=== PATIENT | male | born 1960 | race Hispanic/Latino ===

== ENCOUNTER 2018-07-01 15:22 | Outpatient (CLI) | payer OTHER | END 2018-07-01 15:23 | disposition home or self-care (01) | LOC: DTY/OP 15:22 | PROVIDERS: ATTEND Family Medicine | DX: E11.59 Type 2 diabetes mellitus with other circulatory complications (principal) | CPT/HCPCS: 97802 ==

== ENCOUNTER 2019-02-21 14:40 | Outpatient (CLI) | payer OTHER ==
--- NOTE | 2019-02-21 15:02 | RAD ---
Chest 2 views HISTORY: Kidney cancer. Follow-up. COMPARISON: 09/10/2017. FINDINGS: Cardiac silhouette and pulmonary vasculature are unremarkable. Mediastinum is midline. No c onfluent airspace consolidation, pneumothorax, or pleural fluid. Degenerative changes of the thoracic spine and shoulders. IMPRESSION: No active cardiopulmonary abnormalities are demonstrated.
--- NOTE | 2019-02-21 15:53 | ULT ---
Renal sonogram HISTORY: Kidney cancer. Follow-up. COMPARISON: CT exam from 09/16/2017. FINDINGS: Right kidney is 11.6 cm. Postsurgical changes are stable. No focal mass. No hydronephrosis. Urinary bladder is unremarkable. Left kidney is 11.7 cm long and has a normal appearance without evidence of mass, stone, or hydroneph rosis. IMPRESSION: No significant abnormalities are demonstrated.
== END 2019-02-21 14:41 | disposition home or self-care (01) ==
LOC: BICULT 14:40
PROVIDERS: ATTEND Urology
DX: C64.1 Malignant neoplasm of right kidney, except renal pelvis (principal)
CPT/HCPCS: 71046; 76770

== ENCOUNTER 2019-11-25 09:17 | Outpatient (CLI) | payer BC ==
--- NOTE | 2019-11-25 09:54 | RAD ---
XR Chest 1 View Portable HISTORY: Clear cell carcinoma of the right kidney COMPARISON: 02/21/2019 FINDINGS: The heart size is normal. The lungs are well expanded without focal areas of consolidation, pneumothorax or pleural effusions. There is an electronic device overlying the left chest. IMPRESSION: No radiographic evidence of acute cardiopulmonary process.
[2019-11-25] MEDS ORDERED: Iopamidol 370 76% 100 ML VIAL ONE (10:21)
--- NOTE | 2019-11-25 10:48 | CT ---
CT ABDOMEN AND PELVIS WITH AND WITHOUT IV CONTRAST 11/25/2019 CLINICAL INFORMATION: Clear cell carcinoma of right kidney. Follow-up evaluation. Excision of tumor in 2015. COMPARISON: CT abdomen on 09/16/2017 Technique: Multiple contiguous axial CT images are obtained through the abdomen and pelvis with IV contrast. Cor onal reformatted images are provided. FINDINGS: Lower Chest: Minimal dependent atelectasis is present each lung base. No pulmonary nodule or pleural effusion is seen either lung base. Vessels: Abdominal aorta is normal in caliber. Abdomen: Portal vein:Patent Gallbladder: A small increased density focus is seen in the gallbladder lumen also seen on the prior study and in a similar location. This could represent either a gallbladder polyp or gallbladder calculus measuring approximately 4 mm. Liver: within normal limits. Spleen: within normal limits. Pancreas: within normal limits. Adrenals: within normal limits. Kidneys: Postsurgical changes right kidney related to partial right nephrectomy are again noted. Find ings are overall similar to the prior exam. No abnormal areas of enhancement are seen in this region, and no cystic lesion is appreciated. The left kidney demonstrates a normal CT appearance. Bowel: Small to moderate amount retained fecal material seen throughout the colon. Loops of small bow el are normal in caliber. Appendix: The appendix is visualized and normal in caliber. Peritoneum: No ascites or free air; no fluid collection. Mesentery and Retroperitoneum: No enlarged mesenteric or retroperitoneal lymph nodes. Abdominal Wall: within normal limits. Pelvis: Reproductive Organs: Prostate gland is enlarged measuring 5.6 cm in transverse dimensions with mild n onspecific heterogeneity involving the prostate gland. Pelvis within normal limits. Bladder: Mostly decompressed. Hammond of the urinary bladder appear mildly thickened, but this is proba douglas attributable to incomplete distention Bones: Degenerative and postoperative changes in the lumbar spine are noted. No suspicious lytic or s clerotic osseous lesions are identified. IMPRESSION: 1. Postoperative changes related to partial right nephrectomy are again seen. No abnormal enhancing l esion is seen in the region of postoperative changes or involving the right kidney. 2. No CT evidence of metastatic disease. 3. Stable small 4 mm gallbladder polyp versus calculus in the region of the neck of the gallbladder. 4. Enlarged heterogeneous prostate gland.
== END 2019-11-25 09:18 | disposition home or self-care (01) ==
LOC: CT 09:17
PROVIDERS: ATTEND Urology
DX: C64.1 Malignant neoplasm of right kidney, except renal pelvis (principal); N40.0 Benign prostatic hyperplasia without lower urinary tract symptoms
CPT/HCPCS: 71045; 74178; Q9967

== ENCOUNTER 2020-01-02 09:12 | Outpatient (CLI) | payer BC ==
--- NOTE | 2020-01-02 11:22 | MRI ---
MR OF THE THORACIC SPINE WITHOUT CONTRAST INDICATION: 59-year-old male with radicular back pain TECHNIQUE: Multiplanar multisequence MR images were obtained of the thoracic spine without contrast. Spine count series was provided. COMPARISON: None FINDINGS: Bone marrow signal intensity: Normal Spinal alignment: Normal Spinal cord: Normal signal intensity and contour. Paravertebral soft tissues: Normal Vertebral levels: T1-T2: No appreciable central canal or neural foraminal narrowing is evident. T2-T3: No appreciable central canal or neural foraminal narrowing. T3-T4: No appreciable central canal or neural foraminal narrowing.. T4-T5: No appreciable central canal or neural foraminal narrowing. T5-T6: There is a moderate size central to right paracentral disc protrusion inducing mild ventral ef facement of the spinal cord without definite cord signal abnormality. T6-T7: There is a right central cephalad extending disc extrusion, extending superiorly up to T5-T6 i ntervertebral level, measuring 1.8 cm x 0.6 cm in its greatest craniocaudad and mediolateral dimensions. This is causing mild ventral effacement of the subarachnoid space with ventral cord conta ct. T7-T8: There is a central cephalad extending disc extrusion causing mild ventral effacement of the tarango barachnoid space and spinal cord. This extrusion measures 1.3 x 0.5 cm, craniocaudad versus mediolateral dimensions respectively. T8-T9: There is a left paracentral disc extrusion causing mild ventral effacement of the subarachnoid space. T9-T10: No appreciable central canal or neural foraminal narrowing. T10-T11: No appreciable central canal or neural foraminal narrowing. T11-T12: No appreciable central canal or neural foraminal narrowing. T12-L1: No appreciable central canal or neural foraminal narrowing. Additional findings: None. IMPRESSION: 1. Disc protrusions and disc extrusions at T5-6 through T8-T9 inducing central canal narrowing as abo ve
--- NOTE | 2020-01-02 11:40 | MRI ---
MR the lumbar spine without contrast INDICATION: Lumbar radicular pain with history of back surgery COMPARISON: MR lumbar spine without contrast from prior radiology associates dated May 31, 2015 TECHNIQUE: Multiplanar multisequence MR images were obtained of lumbar spine without IV contrast. FINDINGS: Bone marrow: Normal. Distal spinal cord and conus: Normal. Conus is seen to terminate at the L1 level. Visualized retroperitoneum and paraspinal soft tissues: Normal. No lymphadenopathy demonstrated. There is postprocedural change of a posterior lateral interbody fusion at L4-5 which is new from the prior exam. Vertebral levels: L5-S1: Susceptibility artifact limits evaluation of the left L5-S1 neural foramina. There is stable g rade 1 anterolisthesis of L5 on S1. There is loss of disc space height in addition to facet hypertrophy inducing at least mild right neural foraminal narrowing. L4-5: There is postprocedural change of a laminectomy at L4-5. There is some loss of disc space heigh t in addition to some residual facet hypertrophy that induces at least moderate left and mild right neural foraminal narrowing. The neural foraminal narrowing is slightly improved from the prior exam. Previously seen central canal narrowing has improved. L3-4: There is a new cephalad extending disc extrusion seen centrally at L3-4 measuring 1.6 x 1.7 cm in its greatest mediolateral and craniocaudad dimensions respectively. The extrusion in addition to facet hypertrophy and ligamentum flavum hypertrophy induces severe central canal narrowing which is n ew from the prior exam. The facet hypertrophy in addition to a broad-based bulge at L3-4 induces moderate bilateral neural foraminal narrowing which has progressed from the prior exam. L2-3: There is a broad-based disc bulge with a superimposed left paracentral disc protrusion. The bro ad-based bulge with facet hypertrophy induces mild bilateral neural foraminal narrowing and mild central canal narrowing. This has progressed from the prior exam. L1-L2: No appreciable central canal or neuroforaminal narrowing. T12-L1: No appreciable central canal or neuroforaminal narrowing. IMPRESSION: 1. New cephalad extending disc extrusion seen centrally at L3-4 inducing severe central canal narrowi ng. There is also worsening moderate bilateral neural foraminal narrowing at L3-4 due to a a broad-based bulge and facet hypertrophy. 2. Improvement in the previously seen central canal narrowing at L4-5 due to laminectomies at L4. The re is slight improving moderate left and mild right neural foraminal narrowing at L4-5. 3. Some limitations examination due to susceptibility artifact from pedicle screws at L5. The left ne ural foraminal narrowing at L5-S1 is not well seen. There is at least mild right neural foraminal narrowing at L5-S1. 4. Broad-based bulge with a small superimposed left paracentral disc protrusion at L2-3 inducing mild central canal narrowing and mild bilateral neural foraminal narrowing.
== END 2020-01-02 09:13 | disposition home or self-care (01) ==
LOC: TBSIIMAG 09:12
PROVIDERS: ATTEND Family Medicine
DX: M51.14 Intervertebral disc disorders with radiculopathy, thoracic region (principal); M47.26 Other spondylosis with radiculopathy, lumbar region; M96.1 Postlaminectomy syndrome, not elsewhere classified; M48.062 Spinal stenosis, lumbar region with neurogenic claudication; Z98.1 Arthrodesis status; M51.16 Intervertebral disc disorders with radiculopathy, lumbar region
CPT/HCPCS: 72146; 72148

== ENCOUNTER 2020-08-17 10:35 | Outpatient (CLI) | payer BC ==
--- NOTE | 2020-08-17 13:09 | RAD ---
RIGHT KNEE 4 VIEWS: Date: 08/17/2200 HISTORY: Right knee pain. No specific injury. FINDINGS: There are moderate arthritic changes noted. There is some mild to moderate medial compartment narrowi ng, fairly prominent patellofemoral spurs, and also lateral compartment degenerative change. There is a small joint effusion seen. IMPRESSION: 1. Moderate osteoarthritic changes of the knee. 2. Atherosclerosis. POS: MACK
--- NOTE | 2020-08-17 13:10 | RAD ---
RIGHT CLAVICLE 2 VIEWS: Date: 08/17/2020 HISTORY: Deformity right clavicle, no injury. FINDINGS: There is some moderate arthrosis of the AC joint. There is no old or new fracture of the clavicle. Po stoperative changes related to previous rotator cuff repair are noted. IMPRESSION: Some moderate arthrosis of the AC joint. This may account for the deformity if the deformity is in th e region of the distal clavicle. POS: MACK
--- NOTE | 2020-08-17 13:13 | RAD ---
LEFT SHOULDER 3 VIEWS: Date: 08/17/2020 HISTORY: Left shoulder pain. FINDINGS: Some mild to moderate arthritic change of the AC joint. Glenohumeral joint space appears fairly unrem arkable. There are no signs of fracture. IMPRESSION: Mild arthritic changes of the shoulder. POS: MACK
== END 2020-08-17 10:36 | disposition home or self-care (01) ==
LOC: BICRAD 10:35
PROVIDERS: ATTEND Physician Assistant
DX: M25.512 Pain in left shoulder (principal); M25.561 Pain in right knee; M95.8 Other specified acquired deformities of musculoskeletal system; M19.012 Primary osteoarthritis, left shoulder; M19.011 Primary osteoarthritis, right shoulder; M17.12 Unilateral primary osteoarthritis, left knee; I70.90 Unspecified atherosclerosis

== ENCOUNTER 2020-08-20 09:11 | Outpatient (CLI) | payer BC ==
--- NOTE | 2020-08-20 10:13 | ULT ---
GALLBLADDER ULTRASOUND: HISTORY: Right upper quadrant abdominal pain, nausea FINDINGS: The liver demonstrates homogeneous echotexture without focal mass or intrahepatic biliary ductal dila tation. No gallstones, gallbladder wall thickening or pericholecystic fluid are seen. There is a nonshadowing 5 mm echogenic focus arising from the wall of the gallbladder without mobility, consistent with polyp The pancreas is not visualized due to overlying bowel gas. There is a 4 x 2.4 x 2.3 cm hypoechoic area in the right kidney. It cannot be said with certainty if this is due to a mass or postop change. The common duct [id number] in diameter. No free fluid is seen in the Daniels's pouch. IMPRESSION: 1. A 5 mm gallbladder polyp 2. Mass versus postop change in the right kidney. CT scan of the abdomen and pelvis using the urograp hy protocol is recommended.
== END 2020-08-20 09:12 | disposition home or self-care (01) ==
LOC: BICULT 09:11
PROVIDERS: ATTEND Surgery
DX: R10.11 Right upper quadrant pain (principal); R11.0 Nausea; K82.4 Cholesterolosis of gallbladder
CPT/HCPCS: 76705

== ENCOUNTER 2020-09-07 08:31 | Outpatient (CLI) | payer BC ==
--- NOTE | 2020-09-07 12:12 | CT ---
CT ABDOMEN WITH AND WITHOUT IV CONTRAST: HISTORY: Clear cell carcinoma of the right kidney. COMPARISON: 09/16/2017. FINDINGS: Postop changes of partial right nephrectomy are again seen. No renal calculi or renal mass is seen o n either side. There is normal contrast excretion into the ureters bilaterally. No calculi are seen in the visualized portions of the ureters. No hydroureteral nephrosis is seen on either side. The lung bases are clear. The liver, spleen, pancreas, and adrenal glands are normal. A tiny calcif ied gallstone is present. No free air, free fluid, or lymphadenopathy is noted in the abdomen. The aorta is of normal caliber. There are postop changes of posterior small effusion at L4-5 level. Degenerative changes are prese nt in the spine. No osteolytic or osteoblastic lesions are noted. The small bowel loops are not abn ormally dilated. A normal-appearing appendix is present. IMPRESSION: 1. Stable postop changes of partial right nephrectomy without evidence of recurrent or metastatic di sease. 2. Cholelithiasis. POS: AH
[2020-09-07] MEDS ORDERED: Iopamidol 370 76% 100 ML VIAL ONE (15:05)
== END 2020-09-07 08:32 | disposition home or self-care (01) ==
LOC: CT 08:31
PROVIDERS: ATTEND Urology
DX: C64.1 Malignant neoplasm of right kidney, except renal pelvis (principal); K80.20 Calculus of gallbladder without cholecystitis without obstruction; Z90.5 Acquired absence of kidney
CPT/HCPCS: 74170; Q9967

== ENCOUNTER 2021-06-11 12:00 | Inpatient (IN) | payer BC ==
[2021-06-13 11:27] VITALS: BMI 41.1
[2021-06-14] MEDS ORDERED: Albumin 5% 500 ML ONE (06:28)
[2021-06-14] MEDS ORDERED: Fentanyl 100 MCG/2 ML VIAL ONE (06:47)
[2021-06-14] MEDS ORDERED: Dexmedetomidine 200 MCG/2 ML VIAL ONE (06:48)
[2021-06-14] MEDS ORDERED: Midazolam HCl 5 mg/5 ml Vial ONE (06:48)
[2021-06-14] MEDS ORDERED: Heparin 10,000 UNITS/1 ML VIAL 30,000 UNITS in Sodium Chloride 0.9% 1,000 ML FS SCH (07:00)
[2021-06-14] MEDS ORDERED: Midazolam HCl 2 mg/2 ml Vial ONE (07:10)
[2021-06-14] MEDS ORDERED: Ondansetron ODT 4 MG TAB ONE (07:11)
[2021-06-14] MEDS ORDERED: PROPOFOL 200 MG/20 ML VIAL ONE (08:06)
[2021-06-14] MEDS ORDERED: Thrombin 5000 UNITS/5 ML VIAL ONE (08:06)
[2021-06-14] MEDS ORDERED: Dexamethasone 20 MG/5 ML VIAL ONE (08:06)
[2021-06-14] MEDS ORDERED: Aminocaproic Acid 5 GM/20 ML VIAL ONE (08:06)
[2021-06-14] MEDS ORDERED: Ketorolac Tromethamine 30 MG/ML VIAL ONE (08:06)
[2021-06-14] MEDS ORDERED: Vecuronium 10 MG VIAL ONE (08:06)
[2021-06-14] MEDS ORDERED: Protamine Sulfate 250 MG/25 ML VIAL ONE (08:06)
[2021-06-14] MEDS ORDERED: Norepinephrine 4 MG/4 ML VIAL ONE (08:06)
[2021-06-14] MEDS ORDERED: Calcium Chloride 1 GM/10 ML Abboject SYRINGE ONE (08:06)
[2021-06-14] MEDS ORDERED: Glycopyrrolate 0.2 MG/ML 5 ML SYRINGE ONE (08:06)
[2021-06-14] MEDS ORDERED: Lidocaine 1% PF 5 ML VIAL ONE (08:06)
[2021-06-14] MEDS ORDERED: Ondansetron PF 4 MG/2 ML Vial ONE (08:06)
[2021-06-14] MEDS ORDERED: Heparin 30,000 units/30 ml VIAL ONE (08:06)
[2021-06-14] MEDS ORDERED: Nitroglycerin 50 MG/250 ML BOT ONE (08:06)
[2021-06-14] MEDS ORDERED: Insulin Regular 300 UNITS/3 ML VIAL ONE (08:11)
[2021-06-14] MEDS ORDERED: Furosemide 20 MG/2 ML VIAL ONE (09:40)
[2021-06-14] MEDS ORDERED: Acetaminophen 325 MG TAB PO PRN (10:37)
[2021-06-14] MEDS ORDERED: HYDROcodone/Acetaminophen 5/325 mg Tablet PO PRN (10:37)
[2021-06-14] MEDS ORDERED: Morphine 2 MG/ML VIAL SLOW IVP PRN (10:37)
[2021-06-14] MEDS ORDERED: Fentanyl 100 MCG/2 ML VIAL SLOW IVP PRN ×2 (10:37)
[2021-06-14] MEDS ORDERED: Post-Op Insulin Drip Protocol IVPB ONE (10:37)
[2021-06-14] MEDS ORDERED: Promethazine HCl 25 MG/ML VIAL IM PRN (10:37)
[2021-06-14] MEDS ORDERED: Hetastarch 6% 500 ML 500 ML IVPB PRN (10:37)
[2021-06-14] MEDS ORDERED: niCARdipine 25 MG in Sodium Chloride 0.9% 250 ML 250 ML IVPB PRN (10:37)
[2021-06-14] MEDS ORDERED: DOPamine 400 MG/D5W 250 ML 250 ML IVPB PRN (10:37)
[2021-06-14] MEDS ORDERED: Guaifenesin DM 100-10/5 ML UDCUP PO PRN (10:37)
[2021-06-14] MEDS ORDERED: Nitroglycerin 50 MG/250 ML BOT 250 ML IVPB PRN (10:37)
[2021-06-14] MEDS ORDERED: Bisacodyl 10 MG SUPP PR PRN (10:37)
[2021-06-14] MEDS ORDERED: hydrALAZINE 20 MG/ML VIAL SLOW IVP PRN (10:37)
[2021-06-14] MEDS ORDERED: Potassium Chloride 20 MEQ/100 ML PREMIX BAG IVPB PRN (10:37)
[2021-06-14] MEDS ORDERED: Ondansetron PF 4 MG/2 ML Vial IVP PRN (10:37)
[2021-06-14] MEDS ORDERED: Mag-Al 1200 mg/1200 mg/30 ML UDCUP PO PRN (10:37)
[2021-06-14 11:14] LABS: #Eosinphils 0.1 thou/uL (0.0-0.7); #Lymphocytes 1.7 thou/uL (1.20-3.40); #Monocytes 0.4 thou/uL (0.11-0.59); #Neutrophils 11.9 thou/uL (1.40-6.50); %Basophils 0.2 % (0.0-1.0); %Eosinophils 0.7 % (0.0-10.0); %Monocytes 2.8 % (0.0-10.0); %Neutrophils 84.2 % (42.0-75.0); Hemoglobin 14.6 g/dL (14.0-18.0); Mean Corpuscular HGB CONC 35.3 g/dL (32.0-36.0); Mean Corpuscular Hemoglobin 33.3 pg (27.0-31.0); Mean Corpuscular Volume 94.4 fL (78.0-98.0); Mean Platelet Volume 8.3 fL (7.4-10.4); Platelet Count 188 thou/uL (130-400); RBC Distribution Width 11.9 % (11.5-14.5); Red Blood Cell (RBC) Count 4.37 mill/uL (4.70-6.10); White Blood Cell (WBC) Count 14.1 thou/uL (4.8-10.8)
[2021-06-14 11:26] LABS: PTT 33.3 sec (22.9-36.1); Prothrombin Time 13.1 sec (12.0-14.7)
[2021-06-14] MEDS ORDERED: Dextrose 5% in Water 1,000 ML IV PRN (11:30)
[2021-06-14] MEDS ORDERED: Insulin Regular 300 UNITS/3 ML VIAL SC PRN (11:30)
[2021-06-14] MEDS ORDERED: Dextrose 50% Abboject 50 ML SYRINGE SLOW IVP PRN (11:30)
[2021-06-14] MEDS ORDERED: HUMULIN R 100 UNITS in Sodium Chloride 0.9% 100 ML IVPB SCH (11:30)
[2021-06-14] MEDS: Lactated Ringer's 1,000 ML IV SCH (11:37)
[2021-06-14 11:43] LABS: Anion Gap 11 mmol/L (10-20); BUN (Urea Nitrogen) 19 mg/dL (8.4-25.7); Calc. Creatinine Clearance 146 mL/min (70-130); Calcium 8.4 mg/dL (7.8-10.44); Carbon Dioxide 21 mmol/L (22-29); Chloride 104 mmol/L (98-107); Glucose 179 mg/dL (70-105); Sodium 131 mmol/L (136-145)
[2021-06-14] MEDS: Ketorolac Tromethamine 30 MG/ML VIAL IVP SCH ×2 (11:48→17:08)
[2021-06-14] MEDS: HYDROcodone/Acetaminophen 5/325 mg Tablet PO PRN ×3 (13:22→22:03)
[2021-06-14] MEDS: CEFAZOLIN 2 GM in Premix Bag 1 BAG IVPB SCH ×2 (14:14→22:04)
[2021-06-14 16:33] LABS: Hemoglobin 14.2 g/dL (14.0-18.0)
[2021-06-14] MEDS ORDERED: Famotidine/PF 20 mg/2ml Vial SLOW IVP SCH (21:00)
[2021-06-14] MEDS: Atorvastatin Calcium 20 MG TAB PO SCH (21:01)
[2021-06-15] MEDS: Ketorolac Tromethamine 30 MG/ML VIAL IVP SCH ×5 (00:01→23:17)
[2021-06-15] MEDS: HYDROcodone/Acetaminophen 5/325 mg Tablet PO PRN ×4 (02:05→21:37)
[2021-06-15 04:22] LABS: #Basophils 0.1 thou/uL (0.0-0.2); #Lymphocytes 1.5 thou/uL (1.20-3.40); #Monocytes 1.3 thou/uL (0.11-0.59); #Neutrophils 13.1 thou/uL (1.40-6.50); %Basophils 0.3 % (0.0-1.0); %Eosinophils 0.1 % (0.0-10.0); %Lymphocytes 9.3 % (21.0-51.0); %Monocytes 8.2 % (0.0-10.0); Hemoglobin 14.4 g/dL (14.0-18.0); Mean Corpuscular HGB CONC 34.6 g/dL (32.0-36.0); Mean Corpuscular Hemoglobin 32.5 pg (27.0-31.0); Mean Corpuscular Volume 94.1 fL (78.0-98.0); Mean Platelet Volume 8.6 fL (7.4-10.4); Platelet Count 193 thou/uL (130-400); RBC Distribution Width 11.8 % (11.5-14.5); Red Blood Cell (RBC) Count 4.43 mill/uL (4.70-6.10)
[2021-06-15 04:42] LABS: Anion Gap 10 mmol/L (10-20); BUN (Urea Nitrogen) 24 mg/dL (8.4-25.7); Calc. Creatinine Clearance 125 mL/min (70-130); Calcium 8.7 mg/dL (7.8-10.44); Carbon Dioxide 25 mmol/L (22-29); Chloride 102 mmol/L (98-107); Glucose 146 mg/dL (70-105); Potassium 4.3 mmol/L (3.5-5.1); Sodium 133 mmol/L (136-145)
[2021-06-15] MEDS: CEFAZOLIN 2 GM in Premix Bag 1 BAG IVPB SCH (06:04)
[2021-06-15] MEDS: Lactated Ringer's 1,000 ML IV SCH (06:37)
[2021-06-15] MEDS: Furosemide 40 MG TAB PO SCH (07:25)
[2021-06-15] MEDS ORDERED: Guaifenesin DM 100-10/5 ML UDCUP PO PRN (07:55)
[2021-06-15] MEDS ORDERED: Nitroglycerin 0.4 MG TAB (25 Tab Bottle) SL PRN (07:55)
[2021-06-15] MEDS ORDERED: Mineral Oil ENEMA PR PRN (07:55)
[2021-06-15] MEDS: Lantus 1000 UNITS/10 ML VIAL SC SCH ×2 (08:03→23:16)
[2021-06-15] MEDS: Polyethylene Glycol 3350 17 GM Packet PO SCH (08:05)
[2021-06-15] MEDS ORDERED: Dextrose 50% Abboject 50 ML SYRINGE SLOW IVP PRN (08:15)
[2021-06-15] MEDS ORDERED: Dextrose 5% in Water 1,000 ML IV PRN (08:15)
[2021-06-15] MEDS: Potassium Chloride 10 MEQ TAB PO SCH (08:50)
[2021-06-15] MEDS: Famotidine 20 MG TAB PO SCH ×2 (08:51→21:37)
[2021-06-15] MEDS: Aspirin 325 MG TAB PO SCH (08:51)
[2021-06-15] MEDS ORDERED: Aspirin 325 mg Enteric Coated Tablet PO SCH (09:00)
[2021-06-15] MEDS: Insulin Regular 300 UNITS/3 ML VIAL SC PRN ×2 (11:10→16:04)
[2021-06-15] MEDS ORDERED: Atorvastatin Calcium 20 MG TAB PO SCH (21:00)
[2021-06-15] MEDS: Atorvastatin Calcium 20 MG TAB PO SCH (22:48)
[2021-06-16 04:10] LABS: #Eosinphils 0.1 thou/uL (0.0-0.7); #Lymphocytes 2.2 thou/uL (1.20-3.40); #Monocytes 0.9 thou/uL (0.11-0.59); #Neutrophils 5.8 thou/uL (1.40-6.50); %Basophils 0.4 % (0.0-1.0); %Eosinophils 0.9 % (0.0-10.0); %Lymphocytes 24.5 % (21.0-51.0); %Monocytes 10.4 % (0.0-10.0); %Neutrophils 63.9 % (42.0-75.0); Mean Corpuscular HGB CONC 34.8 g/dL (32.0-36.0); Mean Corpuscular Hemoglobin 33.2 pg (27.0-31.0); Mean Corpuscular Volume 95.3 fL (78.0-98.0); Mean Platelet Volume 8.3 fL (7.4-10.4); Platelet Count 146 thou/uL (130-400); RBC Distribution Width 11.8 % (11.5-14.5); Red Blood Cell (RBC) Count 3.93 mill/uL (4.70-6.10)
[2021-06-16 04:27] LABS: Anion Gap 8 mmol/L (10-20); BUN (Urea Nitrogen) 26 mg/dL (8.4-25.7); Calc. Creatinine Clearance 119 mL/min (70-130); Calcium 8.3 mg/dL (7.8-10.44); Carbon Dioxide 28 mmol/L (22-29); Chloride 100 mmol/L (98-107); Glucose 164 mg/dL (70-105); Potassium 4.3 mmol/L (3.5-5.1); Sodium 132 mmol/L (136-145)
[2021-06-16] MEDS: Ketorolac Tromethamine 30 MG/ML VIAL IVP SCH ×4 (05:02→23:56)
[2021-06-16] MEDS: Insulin Regular 300 UNITS/3 ML VIAL SC PRN ×4 (06:30→20:47)
[2021-06-16] MEDS: Aspirin 325 MG TAB PO SCH (08:12)
[2021-06-16] MEDS: Potassium Chloride 10 MEQ TAB PO SCH (08:12)
[2021-06-16] MEDS: Polyethylene Glycol 3350 17 GM Packet PO SCH (08:12)
[2021-06-16] MEDS: Furosemide 40 MG TAB PO SCH (08:13)
[2021-06-16] MEDS: Famotidine 20 MG TAB PO SCH ×2 (08:13→20:45)
[2021-06-16] MEDS: Lantus 1000 UNITS/10 ML VIAL SC SCH ×2 (08:14→20:47)
[2021-06-16] MEDS: Bisacodyl 5 MG TAB PO PRN ×2 (11:21→20:45)
[2021-06-16] MEDS ORDERED: Lisinopril 10 MG TAB PO SCH (21:00)
[2021-06-16] MEDS ORDERED: Lisinopril 5 MG TAB PO SCH (21:00)
[2021-06-16] MEDS ORDERED: Cepastat Lozenges 1 LOZ PO PRN (21:05)
[2021-06-16] MEDS: Atorvastatin Calcium 20 MG TAB PO SCH (23:46)
[2021-06-17] MEDS: Ketorolac Tromethamine 30 MG/ML VIAL IVP SCH (05:30)
[2021-06-17] MEDS: Insulin Regular 300 UNITS/3 ML VIAL SC PRN (05:46)
[2021-06-17 07:08] VITALS: TEMP 97.9
[2021-06-17] MEDS: Potassium Chloride 10 MEQ TAB PO SCH (08:28)
[2021-06-17] MEDS: Polyethylene Glycol 3350 17 GM Packet PO SCH (08:28)
[2021-06-17] MEDS: Famotidine 20 MG TAB PO SCH (08:29)
[2021-06-17] MEDS: Aspirin 325 MG TAB PO SCH (08:29)
[2021-06-17] MEDS: Furosemide 40 MG TAB PO SCH (08:29)
[2021-06-17] MEDS: Lantus 1000 UNITS/10 ML VIAL SC SCH (08:30)
[2021-06-17 10:26] VITALS: BP 118/59
[2021-06-17 11:58] LABS: Actual Bicarbonate (HCO3a) 20.8 mEq/L (22-28); Analyzer IN Cardio OR; Base Excess (BEa) -4.4 mEq/L (-2.0 to +3.0); Calcium, Ionized (arterial) 1.09 mmol/L (1.12-1.30); Carboxyhemoglobin (COHb) 0.3 gm% (0.0-3.0); O2 Tension (PaO2), arterial 295.7 mmHg (> 80.0); Potassium - ABG Lab 4.34 mmol/L (3.70-5.30); pH, Arterial 7.35 (7.35-7.45)
[2021-06-17 11:58] LABS: Actual Bicarbonate (HCO3a) 21.8 mEq/L (22-28); Analyzer IN Cardio OR; Base Excess (BEa) -3.8 mEq/L (-2.0 to +3.0); CO2 Tension 41.6 mmHg (35.0-45.0); Carboxyhemoglobin (COHb) 0.1 gm% (0.0-3.0); Hemoglobin (Hb) 14.2 g/dL (14.0-18.0); O2 Tension (PaO2), arterial 403.6 mmHg (> 80.0); Potassium - ABG Lab 4.22 mmol/L (3.70-5.30); pH, Arterial 7.34 (7.35-7.45)
[2021-06-17 11:59] LABS: Analyzer IN Cardio OR; Base Excess (BEa) -3.2 mEq/L (-2.0 to +3.0); CO2 Tension 35.2 mmHg (35.0-45.0); Calcium, Ionized (arterial) 1.08 mmol/L (1.12-1.30); Carboxyhemoglobin (COHb) 0.3 gm% (0.0-3.0); Hemoglobin (Hb) 13.9 g/dL (14.0-18.0); O2 Tension (PaO2), arterial 317.5 mmHg (> 80.0); Potassium - ABG Lab 3.98 mmol/L (3.70-5.30); Puncture Site Arterial Line; pH, Arterial 7.39 (7.35-7.45)
[2021-06-17 12:00] LABS: Puncture Site Arterial Line
[2021-06-17 12:00] LABS: Puncture Site Arterial Line
[2021-06-17] MEDS ORDERED: Lisinopril 10 MG TAB PO SCH (21:00)
== END 2021-06-17 10:20 | disposition home or self-care (01) | DRG 236 ==
LOC: SURG A 06-14 06:01 → CCU 06-14 10:56 → EDSTATUS 06-14 12:00 → 2NO 06-15 16:30
PROVIDERS: ADMIT Thoracic Surgery (Cardiothoracic Vascular Surgery); ATTEND Thoracic Surgery (Cardiothoracic Vascular Surgery)
PROC: 02100Z9 Bypass Coronary Artery, One Artery from Left Internal Mammary, Open Approach (ICD-10-PCS; principal; 2021-06-14)
DX: I25.10 Atherosclerotic heart disease of native coronary artery without angina pectoris (principal); Z68.41 Body mass index [BMI] 40.0-44.9, adult; Z20.822 Contact with and (suspected) exposure to COVID-19; E11.9 Type 2 diabetes mellitus without complications; I10 Essential (primary) hypertension; E78.5 Hyperlipidemia, unspecified; E66.9 Obesity, unspecified; M19.90 Unspecified osteoarthritis, unspecified site; E87.70 Fluid overload, unspecified; I95.9 Hypotension, unspecified; Z85.528 Personal history of other malignant neoplasm of kidney; Z90.5 Acquired absence of kidney; Z98.890 Other specified postprocedural states; Z79.899 Other long term (current) drug therapy; Z79.4 Long term (current) use of insulin; Z79.82 Long term (current) use of aspirin; Z91.09 Other allergy status, other than to drugs and biological substances
CPT/HCPCS: 36415; 36416; 71045; 71046; 80048; 82805; 85025; 85027; 85610; 85730; 86850; 86900; 86901; 93005; 93010; 93798; 94150; 97139; J0690; J1100; J1642; J1644; J1815; J1885; J1940; J2250; J2405; J2704; J2720; J3010; J3370; J3480; J3490; P9045; Q0162; S0017; S0028; U0003; U0005

== ENCOUNTER 2021-07-24 19:30 | Outpatient (CLI) | payer BC | END 2021-07-24 19:31 | disposition home or self-care (01) | LOC: SLEEPLAB 19:30 | PROVIDERS: ATTEND Family Medicine | DX: G47.33 Obstructive sleep apnea (adult) (pediatric) (principal); R53.83 Other fatigue; R09.89 Other specified symptoms and signs involving the circulatory and respiratory systems; K21.9 Gastro-esophageal reflux disease without esophagitis; I11.9 Hypertensive heart disease without heart failure; R35.1 Nocturia; E11.9 Type 2 diabetes mellitus without complications; I21.9 Acute myocardial infarction, unspecified; I25.10 Atherosclerotic heart disease of native coronary artery without angina pectoris; I49.9 Cardiac arrhythmia, unspecified; E66.9 Obesity, unspecified; Z68.39 Body mass index [BMI] 39.0-39.9, adult | CPT/HCPCS: 95810 ==

== ENCOUNTER 2021-10-22 18:16 | Outpatient (CLI) | payer BC ==
[2021-10-22 19:29] LABS: Mean Corpuscular HGB CONC 34.7 g/dL (32.0-36.0); Mean Corpuscular Hemoglobin 29.9 pg (27.0-33.0); Mean Corpuscular Volume 86.1 fl (81.2-95.1); Mean Platelet Volume 11.1 fl (7.4-10.4); Platelet Count 197 10x3/uL (150-450); RBC Distribution Width 12.6 % (11.5-14.5); Red Blood Cell (RBC) Count 5.69 10x6/uL (4.32-5.72); White Blood Cell (WBC) Count 7.5 10x3/uL (3.5-10.5)
[2021-10-22 19:32] LABS: Anion Gap 13 mmol/L (10-20); BUN (Urea Nitrogen) 19 mg/dL (8.4-25.7); Calc. Creatinine Clearance 0 mL/min (70-130); Calcium 9.8 mg/dL (7.8-10.44); Carbon Dioxide 24 mmol/L (23-31); Chloride 106 mmol/L (98-107); Glucose 119 mg/dL (80-115); Potassium 4.2 mmol/L (3.5-5.1); Sodium 139 mmol/L (136-145)
[2021-10-23 23:25] LABS: SARS-CoV-2 PCR by NAA Not Detected (NotDetected)
== END 2021-10-22 18:17 | disposition home or self-care (01) ==
LOC: LABBT 18:16
PROVIDERS: ATTEND Neurological Surgery
DX: Z01.812 Encounter for preprocedural laboratory examination (principal); K40.90 Unilateral inguinal hernia, without obstruction or gangrene, not specified as recurrent; Z20.822 Contact with and (suspected) exposure to COVID-19
CPT/HCPCS: 80048; 85027; U0003; U0005

== ENCOUNTER 2021-10-25 05:37 | Day surgery (SDC) | payer BC ==
[2021-10-23 15:33] VITALS: BMI 36.4
[2021-10-25] MEDS ORDERED: ceFAZolin 2 GM/DEX 5% 100 ML BAG ONE ×2 (06:10→10:33)
[2021-10-25] MEDS ORDERED: Bupivacaine PF 0.5% 30 ML VIAL ONE (06:18)
[2021-10-25] MEDS ORDERED: EPINEPHrine 1 MG/ML AMP ONE (06:18)
[2021-10-25] MEDS ORDERED: Thrombin 5000 UNITS/5 ML VIAL ONE (06:18)
[2021-10-25] MEDS ORDERED: Midazolam HCl 2 mg/2 ml Vial ONE (06:43)
[2021-10-25] MEDS ORDERED: Fentanyl 100 MCG/2 ML VIAL ONE ×2 (06:43→09:01)
[2021-10-25] MEDS ORDERED: HYDROmorphone 0.5 MG/0.5 ML SYRINGE ONE (06:56)
[2021-10-25] MEDS ORDERED: Ketamine 50 MG/ML (10ML VIAL) ONE (06:56)
[2021-10-25] MEDS ORDERED: Ketorolac Tromethamine 30 MG/ML VIAL ONE (07:00)
[2021-10-25] MEDS ORDERED: Ondansetron PF 4 MG/2 ML Vial ONE (07:00)
[2021-10-25] MEDS ORDERED: PROPOFOL 200 MG/20 ML VIAL ONE (07:00)
[2021-10-25] MEDS ORDERED: Glycopyrrolate 0.2 MG/ML 5 ML SYRINGE ONE (07:00)
[2021-10-25] MEDS ORDERED: Phenylephrine 10 MG/ML VIAL ONE (07:00)
[2021-10-25] MEDS ORDERED: Lidocaine 1% PF 5 ML VIAL ONE (07:00)
[2021-10-25] MEDS ORDERED: Dexamethasone 20 MG/5 ML VIAL ONE (07:00)
[2021-10-25] MEDS ORDERED: Tamsulosin HCl 0.4 MG CAP ONE (09:01)
[2021-10-25] MEDS ORDERED: HYDROcodone/Acetaminophen 5/325 mg Tablet ONE (10:09)
== END 2021-10-25 12:15 | disposition home or self-care (01) ==
LOC: SDC 05:37
PROVIDERS: ATTEND Neurological Surgery
PROC: 01NB0ZZ Release Lumbar Nerve, Open Approach (ICD-10-PCS; principal; 2021-10-25)
DX: M48.062 Spinal stenosis, lumbar region with neurogenic claudication (principal); E78.5 Hyperlipidemia, unspecified; G89.4 Chronic pain syndrome; E11.9 Type 2 diabetes mellitus without complications; M19.90 Unspecified osteoarthritis, unspecified site; I25.10 Atherosclerotic heart disease of native coronary artery without angina pectoris; I10 Essential (primary) hypertension; G47.33 Obstructive sleep apnea (adult) (pediatric); K21.9 Gastro-esophageal reflux disease without esophagitis; Z79.4 Long term (current) use of insulin; Z79.82 Long term (current) use of aspirin; Z79.84 Long term (current) use of oral hypoglycemic drugs; Z79.899 Other long term (current) drug therapy; Z91.041 Radiographic dye allergy status; Z95.1 Presence of aortocoronary bypass graft; Z98.1 Arthrodesis status; Z90.5 Acquired absence of kidney
CPT/HCPCS: 36416; 76000; J0171; J1100; J1170; J1885; J2250; J2370; J2405; J2704; J3010; S0020

== ENCOUNTER 2021-12-17 13:01 | Outpatient (CLI) | payer BC ==
[2021-12-17 14:31] LABS: #Eosinphils 0.3 10x3/uL (0.0-0.5); #Monocytes 0.4 10x3/uL (0.0-1.1); #Neutrophils 4.6 10x3/uL (1.5-8.4); %Basophils 0.4 % (0.0-2.0); %Eosinophils 3.5 % (0.0-6.0); %Lymphocytes 28.6 % (18.0-47.0); %Monocytes 5.7 % (0.0-10.0); %Neutrophils 61.7 % (40.0-75.0); Hemoglobin 16.5 g/dL (13.5-17.5); Mean Corpuscular HGB CONC 33.8 g/dL (32.0-36.0); Mean Corpuscular Hemoglobin 29.4 pg (27.0-33.0); Mean Platelet Volume 10.8 fl (7.4-10.4); Platelet Count 192 10x3/uL (150-450); RBC Distribution Width 12.6 % (11.5-14.5); Red Blood Cell (RBC) Count 5.61 10x6/uL (4.32-5.72); White Blood Cell (WBC) Count 7.5 10x3/uL (3.5-10.5)
[2021-12-17 15:01] LABS: ALT (SGPT) 27 U/L (8-55); AST (SGOT) 20 U/L (5-34); Albumin 4.3 g/dL (3.4-4.8); Alkaline Phosphatase 135 U/L (40-110); Anion Gap 16 mmol/L (10-20); BUN (Urea Nitrogen) 19 mg/dL (8.4-25.7); Bilirubin, Total 0.7 mg/dL (0.2-1.2); Calc. Creatinine Clearance 0 mL/min (70-130); Calcium 9.5 mg/dL (7.8-10.44); Carbon Dioxide 23 mmol/L (23-31); Chloride 104 mmol/L (98-107); Globulin 2.8 g/dL (2.4-3.5); Glucose 150 mg/dL (80-115); Potassium 4.5 mmol/L (3.5-5.1); Protein, Total 7.1 g/dL (5.8-8.1); Sodium 138 mmol/L (136-145)
[2021-12-18 00:03] LABS: SARS-CoV-2 PCR by NAA Not Detected (NotDetected)
== END 2021-12-17 13:02 | disposition home or self-care (01) ==
LOC: LABBT 13:01
PROVIDERS: ATTEND Surgery
DX: Z01.818 Encounter for other preprocedural examination (principal); K40.90 Unilateral inguinal hernia, without obstruction or gangrene, not specified as recurrent; Z20.822 Contact with and (suspected) exposure to COVID-19
CPT/HCPCS: 80053; 85025; 93005; 93010; U0003; U0005

== ENCOUNTER 2021-12-20 06:13 | Day surgery (SDC) | payer BC ==
[2021-12-11 15:51] VITALS: BMI 37.3
[2021-12-20] MEDS ORDERED: Fentanyl 250 MCG/5 ML VIAL ONE (06:52)
[2021-12-20] MEDS ORDERED: Bupivacaine 0.25% HCL 30 ML VIAL ONE (07:47)
[2021-12-20] MEDS ORDERED: Xylocaine 1% w/ Epi 1:100K 10 ML VIAL ONE (07:47)
[2021-12-20] MEDS ORDERED: ceFAZolin Sodium (SDC) 2 GM/100 ML BAG ONE (07:54)
[2021-12-20] MEDS ORDERED: Lidocaine 1% PF 5 ML VIAL ONE (08:00)
[2021-12-20] MEDS ORDERED: PROPOFOL 200 MG/20 ML VIAL ONE (08:00)
[2021-12-20] MEDS ORDERED: Metoclopramide HCl 10 MG/2 ML VIAL ONE (08:00)
[2021-12-20] MEDS ORDERED: Ondansetron PF 4 MG/2 ML Vial ONE (08:00)
== END 2021-12-20 11:50 | disposition home or self-care (01) ==
LOC: SDC 06:13
PROVIDERS: ATTEND Surgery
PROC: 0YU50JZ Supplement Right Inguinal Region with Synthetic Substitute, Open Approach (ICD-10-PCS; principal; 2021-12-20)
DX: K40.90 Unilateral inguinal hernia, without obstruction or gangrene, not specified as recurrent (principal); I10 Essential (primary) hypertension; E78.5 Hyperlipidemia, unspecified; E11.9 Type 2 diabetes mellitus without complications; K21.9 Gastro-esophageal reflux disease without esophagitis; M19.90 Unspecified osteoarthritis, unspecified site; E78.00 Pure hypercholesterolemia, unspecified; I25.10 Atherosclerotic heart disease of native coronary artery without angina pectoris; E66.01 Morbid (severe) obesity due to excess calories; Z68.37 Body mass index [BMI] 37.0-37.9, adult; Z79.4 Long term (current) use of insulin; Z79.84 Long term (current) use of oral hypoglycemic drugs; Z79.899 Other long term (current) drug therapy; Z91.041 Radiographic dye allergy status; Z95.1 Presence of aortocoronary bypass graft; Z90.5 Acquired absence of kidney
CPT/HCPCS: 36416; C1781; J0690; J2405; J2704; J2765; J3010; S0020

== ENCOUNTER 2022-12-23 09:52 | Outpatient (CLI) | payer OTHER | END 2022-12-23 09:53 | disposition home or self-care (01) | LOC: BICRAD 09:52 | PROVIDERS: ATTEND Internal Medicine | DX: Z02.71 Encounter for disability determination (principal); M47.816 Spondylosis without myelopathy or radiculopathy, lumbar region; Z98.890 Other specified postprocedural states | CPT/HCPCS: 72100 ==

== ENCOUNTER 2024-09-14 08:14 | Outpatient (CLI) | payer OTHER ==
[2024-09-14] MEDS ORDERED: GASTROGRAFIN 30 ML BOT ONE (10:22)
[2024-09-14] MEDS ORDERED: Iopamidol 370 76% 100 ML VIAL ONE (10:22)
== END 2024-09-14 08:15 | disposition home or self-care (01) ==
LOC: CT 08:14
PROVIDERS: ATTEND Surgery
DX: R19.06 Epigastric swelling, mass or lump (principal); K59.00 Constipation, unspecified
CPT/HCPCS: 74177; Q9963; Q9967

== ENCOUNTER 2024-11-25 06:01 | Day surgery (SDC) | payer OTHER ==
[2024-11-24 15:24] VITALS: BMI 39.1
[2024-11-25 08:17] LABS: #Basophils Less than 0.03 10x3/uL (0.0-0.2); #Eosinophils Less than 0.03 10x3/uL (0.0-0.7); %Basophils 0.1 % (0.0-1.0); %Monocytes 0.8 % (0.0-10.0); %Neutrophils 89.9 % (42.0-75.0); Hematocrit 45.2 % (42.0-52.0); Hemoglobin 16.1 g/dL (14.0-18.0); Mean Corpuscular HGB CONC 35.6 g/dL (32.0-36.0); Mean Corpuscular Volume 87.1 fL (78.0-98.0); Mean Platelet Volume 10.4 fL (7.4-10.4); Platelet Count 184 10x3/uL (130-400); RBC Distribution Width 12.3 % (11.5-14.5); Red Blood Cell (RBC) Count 5.19 mill/uL (4.70-6.10)
[2024-11-25] MEDS ORDERED: fentaNYL 50 mcg/mL 1 mL Vial ONE (08:22)
[2024-11-25] MEDS ORDERED: Midazolam HCl 2 mg/2 ml Vial ONE (08:22)
[2024-11-25] MEDS ORDERED: Heparin 10,000 UNITS/ 10 ML VIAL ONE (08:22)
[2024-11-25] MEDS ORDERED: Nitroglycerin 50 MG/250 ML BOT 0 ML ONE (08:22)
[2024-11-25 08:32] LABS: ALT (SGPT) 30 U/L (8-55); AST (SGOT) 19 U/L (5-34); Alkaline Phosphatase 111 U/L (40-110); Anion Gap 12 mmol/L (10-20); BUN (Urea Nitrogen) 19 mg/dL (8.4-25.7); Bilirubin, Total 0.9 mg/dL (0.2-1.2); Calc. Creatinine Clearance 176 mL/min (70-130); Calcium 9.2 mg/dL (7.8-10.44); Carbon Dioxide 22 mmol/L (23-31); Chloride 105 mmol/L (98-107); Estimated GFR 102; Globulin 3.1 g/dL (2.4-3.5); Glucose 264 mg/dL (80-115); Protein, Total 7.1 g/dL (5.8-8.1); Sodium 135 mmol/L (136-145)
== END 2024-11-25 09:20 | disposition home or self-care (01) ==
LOC: CCL 06:01
PROVIDERS: ATTEND Internal Medicine Cardiovascular Disease
DX: I25.118 Atherosclerotic heart disease of native coronary artery with other forms of angina pectoris (principal); Z53.8 Procedure and treatment not carried out for other reasons; R00.2 Palpitations; I10 Essential (primary) hypertension; E78.5 Hyperlipidemia, unspecified; M19.90 Unspecified osteoarthritis, unspecified site; Z95.1 Presence of aortocoronary bypass graft; R19.00 Intra-abdominal and pelvic swelling, mass and lump, unspecified site; E11.9 Type 2 diabetes mellitus without complications; Z79.82 Long term (current) use of aspirin; Z79.85 Long-term (current) use of injectable non-insulin antidiabetic drugs; Z90.5 Acquired absence of kidney; Z91.041 Radiographic dye allergy status; Z79.899 Other long term (current) drug therapy
CPT/HCPCS: 36416; 80053; 85025; 93005; 93010; J1644; J2250; J3010